=== PATIENT | male | born 1960 | race Caucasian/White ===

== ENCOUNTER 2016-10-08 05:29 | Emergency (ER) | payer MEDICARE ==
--- NOTE | ~2016-10-08 | CT4 ---
[facility] A Service of [facility] RADIOLOGY TEXT RESULTS PATIENT: DULCE ARITA LOCATION: [facility] : 62 UNIT #: [id number] AGE: [address]: Juan Haywood MD SEX: M ORDER DR: [id number] [facility] [address] [place], [place] [address] [id number] MR#: [id number] #: [id number] NAME: DULCE ARITA. : 1960 SEX: M STUDY DATE/TIME: 10/08/2016 6:27 UNIT: [facility] ROOM: STUDY DESCRIPTION: CT Abd and Pelv Wo Cont Attending Physician: Juan Haywood M.D. Ordering Physician: Bela Bustos M.D. Primary Care Physician: Dewayne Ramirez M.D. MEDICAL IMAGING REPORT This report is preliminary unless electronic signature is present EXAM Abdomen and pelvis CT without contrast HISTORY Abdominal pain. Patient injured 6 hours ago when a dog jumped on his abdomen. Pain is toward the left. COMPARISON 03/22/2012. TECHNIQUE Axial imaging was obtained without contrast. This CT examination was performed with one or more of the following radiation dose reduction techniques: automatic exposure control, adjustment of mA and/or kV according to patient size, and iterative reconstruction. FINDINGS The liver, spleen and pancreas are normal in size. The spleen contains calcified granulomas. The right kidney is normal. The left kidney demonstrates moderate hydronephrosis and a dilated ureter. There is an obstructing 5-6 mm stone at the upper pelvis level. No bladder stones are seen. No inflammatory changes are seen elsewhere in the abdomen or pelvis. Postoperative changes of lumbar fusion are noted across L3-4. Alignment is unchanged from the previous CT scan. IMPRESSION 5-6 mm obstructing stone in the mid left ureter. Moderate hydronephrosis. No other acute findings. Dictated by... Eran French M.D. [facility] A Service [facility] RADIOLOGY TEXT RESULTS PATIENT: DULCE ARITA LOCATION: [facility] : 62 UNIT #: [id number] AGE: [address]: Juan Haywood MD SEX: M ORDER DR: THIS IS AN ELECTRONICALLY VERIFIED REPORT Eran French M.D. at 10/08/2016 4:28 PM HARRIS/delbert TD: 10/08/2016 07:59 JOB #: [id number] MEDICAL IMAGING REPORT Page 1 of 1 COPY
[~2016-10-08 05:29] MED LIST: ALBUTEROL17 GM INH; ALPRAZOLAM; ALPRAZOLAM PO; AMBIEN PO; AMBIEN10 MG PO; ASPIRIN PO; ASPIRIN81 M1 PO; BACLOFEN10 MG PO; BACTRIM DS TABL1 TA1 PO; BACTRIM DS TABL1 TAB PO; BENTYL10 MG DOB; BENTYL20 MG PO; CHANTIX PO; CIPRO PO; COLACE PO; DICYCLOMINE HCL20 MG; DOXYCYCLINE PO; DOXYCYCLINE150 MG PO; FLEXERIL10 MG PO; LORCET 10/650 T1 TAB; MEDROL PO; METRONIDAZOLE PO; MILK OF MAGNESIA PO; MOBIC PO; MORGIDOX100 MG PO; MULTI-VITAMIN1 TAB PO; NAPROSYN500 MG PO; NEXIUM PO; NICOTINE T1 PATCH .2 TOP; NICOTINE TRANSD21 MG TD; NORCO 10/325 TA1 TAB; OPANA ER PO; OXYCODONE HCL30 MG PO; OXYCONTIN; OXYCONTIN PO; OXYCONTIN40 MG PO; OXYCONTIN60 MG PO; OXYCONTIN80 MG PO; PATIENT'S PHARMACY; PERCOCET PO; PERCOCET10 PO; PHENERGAN PO; PHENERGAN25 MG PO; PREDNISONE PO; PRILOSEC PO; PROAIR HFA8.5 GM; PROTONIX PO; RITALIN10 MG PO; RITE-AID PHARMACY; ROXICET PO; ROXICODONE15 MG PO; SEROQUEL PO; SYMBICORT INH; TOPAMAX PO; TRAZODONE PO; VIBRAMYCIN100 M1 PO; XANAX1 MG PO; ZANAFLEX; ZANAFLEX PO; ZITHROMAX PO; ZITHROMAX1 G/PKT PO; [UNRECOGNIZED DRUG - OTHER] PO
[2016-10-08 07:08] LABS: BASOPHIL% 0.3 % (0-2.5); EOSINOPHIL# 0.1 X10e3 (0-0.7); EOSINOPHIL% 0.9 % (0.0-7.0); HEMATOCRIT 50.5 % (38.0-50.0); HEMOGLOBIN 16.6 gm/dL (13.0-16.0); LYMPHOCYTE# 1.7 X10e3 (1.0-3.5); LYMPHOCYTE% 11.2 % (17.0-45.0); MEAN CORPUSCULAR HEMOGLOBIN 29.3 PG (28-34); MEAN CORPUSCULAR HGB CONC 32.9 g/dL (30-36); MEAN PLATELET VOLUME 7.6 FL (6.5-11.5); MONOCYTE# 0.5 X10e3 (0-1.0); MONOCYTE% 3.5 % (3.0-12.0); NEUTROPHIL# 12.5 X10e3 (1.5-7.1); NEUTROPHIL% 84.1 % (40-75); PLATELET COUNT 270 X10e3 (140-420); RED BLOOD COUNT 5.67 X10e (3.90-5.60); RED CELL DISTRIBUTION WIDTH 13.9 % (11.0-15.5); WHITE BLOOD COUNT 14.9 X10e3 (4.0-10.5)
[2016-10-08 07:09] LABS: DIFF IND NO
[2016-10-08 07:35] LABS: ALBUMIN SERUM 4.6 g/dL (3.5-5.0); BILIRUBIN,TOTAL 0.7 mg/dL (0.2-2.0); BUN/CREATININE RATIO 12.5; CALCIUM SERUM 9.6 mg/dL (8.4-10.2); CREATININE SERUM 1.2 mg/dL (0.6-1.4); GLOM FILT RATE Estimated 67.7 mL/min (>60); PROTEIN TOTAL SERUM 8.2 g/dL (6.0-8.3)
[2016-10-08 08:41] LABS: URINE SOURCE CLEAN CATCH
[2016-10-08 08:46] LABS: URINE APPEARANCE CLOUDY; URINE BILIRUBIN NEG (NEG); URINE BLOOD 3+ (NEG); URINE COLOR DK YELLOW; URINE GLUCOSE NEG (NEG); URINE KETONE 2+ (NEG); URINE LEUKOCYTE ESTERASE TRACE (NEG); URINE NITRATE NEG (NEG); URINE PROTEIN 1+ (NEG); URINE SPECIFIC GRAVITY 1.025 (1.003-1.035)
[2016-10-08 08:49] LABS: URBCS1 AUWI 100-200 /[HPF] (0-2); URINE BACTERIA AUWI NEG (NEGATIVE); URINE SQUAMOUS EPITHELIAL CELL NONE SEEN /[HPF]
[2016-10-08 08:50] LABS: CULTURE INDICATED? NO
[2016-11-19] MEDS ORDERED: OXYCODONE-ACET1 EACH PO (12:08)
== END 2016-10-08 10:55 | disposition home or self-care (01) ==
LOC: CED 05:29
PROVIDERS: Emergency Medicine
DX: N13.2 Hydronephrosis with renal and ureteral calculous obstruction (principal); J44.9 Chronic obstructive pulmonary disease, unspecified; F17.200 Nicotine dependence, unspecified, uncomplicated; F41.9 Anxiety disorder, unspecified; F32.9 Major depressive disorder, single episode, unspecified; Z88.8 Allergy status to other drugs, medicaments and biological substances; Z88.5 Allergy status to narcotic agent; Z91.040 Latex allergy status
CPT/HCPCS: 36415; 74176; 80053; 81003; 83690; 85025; 96365; 96372; 96375; 99284; J0500; J1170; J2550

== ENCOUNTER → 2016-11-19 | Day surgery (SDC) | payer MEDICARE ==
[~2016-11-19] MED LIST changes: +OXYCODONE-ACET1 EACH PO
--- NOTE | ~2016-11-19 | OR ---
Unit #: [id number] #: [id number] Patient: DULCE ARITA [id number] [address] [address] [id number] O MR#: [id number] NAME: DULCE ARITA. ROOM: Date of Procedure: 11/19/2016 Admission Date: 11/19/2016 Surgeon: Eran Anderson M.D. : 1960 Attending Physician: Eran Anderson M.D. Referring Physician: Eran Anderson M.D. Primary Care Physician: Dewayne Ramirez M.D. OPERATIVE REPORT PREOPERATIVE DIAGNOSIS Left ureteral calculus. POSTOPERATIVE DIAGNOSIS No stone seen. PROCEDURE PERFORMED Cystoscopy with left retrograde ureteropyelography. ANESTHESIA General with local supplementation. INDICATIONS FOR PROCEDURE This is a 56-year-old man, who presented to the office yesterday with a history of persistent intermittent left flank pain since documentation of a mid ureteral calculus on CT two months ago, was added semiurgently to the surgical schedule today. DESCRIPTION OF PROCEDURE The patient was given preoperative antibiotics and satisfactory general anesthesia. In the dorsal lithotomy position, routine prep and drape were performed. The 21-Macedonian rigid cystoscope was introduced with the 30-degree lens and video noting mild elevation of the bladder neck and mild BPH, but no abnormalities of the anterior urethra. The bladder was entered and drained of yellow urine. The bladder was examined and found to have normal symmetric ureteral orifices with no inflammation at the left ureteral orifice. No stones, tumors, or suspicious areas elsewhere in the bladder. I could not see the shadow of a stone fluoroscopically. I placed a Pollack catheter and performed a 5 mL retrograde, which instantly filled the ureter and collecting system, which appeared normal and delicate with no filling defects or obstruction. The ureter drained instantly. The retrograde was repeated and recorded for confirmation. Interpretation of the left retrograde as elaborated above is that it is normal. At this point with certainty that no ureteroscopy was indicated, the bladder was drained. The cystoscope removed and a Uro-jet applied. Dictated by... Unit #: [id number] #: [id number] Patient: DULCE ARITA Eran Anderson M.D. [facility]/juli TD: 11/19/2016 15:32 JOB #: [id number] OPERATIVE REPORT Page 1 of 1 X Eran Anderson MD PROCEDURE OPERATIVE NOTE
== END | disposition home or self-care (01) ==
LOC: CSUR 11:36
DX: N40.0 Benign prostatic hyperplasia without lower urinary tract symptoms (principal); K21.9 Gastro-esophageal reflux disease without esophagitis; J43.9 Emphysema, unspecified; F17.210 Nicotine dependence, cigarettes, uncomplicated; Z87.442 Personal history of urinary calculi; Z88.6 Allergy status to analgesic agent; Z88.8 Allergy status to other drugs, medicaments and biological substances; Z91.040 Latex allergy status; Z79.891 Long term (current) use of opiate analgesic; Z79.899 Other long term (current) drug therapy; Z98.890 Other specified postprocedural states
CPT/HCPCS: J0690; J2250; J3010